=== PATIENT | male | born 1995 | race Caucasian/White ===

== ENCOUNTER 2021-10-06 11:31 | Outpatient (CLI) | payer BC, SELFPAY ==
[2021-10-06 12:44] LABS: Hepatitis B Surface Antigen Negative (Negative)
[2021-10-06 12:47] LABS: HIV 1/2 Ab P24 Ag Result Negative (Negative)
[2021-10-06 12:49] LABS: HAV RESULT Negative (Negative); Hepatitis B Core IgM Result Negative (Negative)
[2021-10-06 13:01] LABS: Hepatitis C Virus Antibody Negative (Negative)
[2021-10-06 14:39] LABS: Rapid Plasma Reagin Non-Reactive (NonReactive)
== END 2021-10-06 11:32 | disposition home or self-care (01) ==
PROVIDERS: PCP Internal Medicine; Visit Provider Physician Assistant
DX: Z11.3 Encounter for screening for infections with a predominantly sexual mode of transmission (principal)
CPT/HCPCS: 36415; 80074; 86592; 86695; 86696; 86703; G0432